=== PATIENT | female | born 1965 | race Caucasian/White ===

== ENCOUNTER → 2016-11-24 | Outpatient (CLI) | payer OTHER ==
[2016-11-24 18:47] LABS: FREE T4 1.28 NG/DL (0.76-1.46)
== END ==
LOC: M WUC 14:36
PROVIDERS: ATTEND Physician Assistant Medical
DX: E89.0 Postprocedural hypothyroidism (principal); L65.9 Nonscarring hair loss, unspecified

== ENCOUNTER → 2017-02-21 | Outpatient (CLI) | payer OTHER ==
[2017-02-21 19:10] LABS: FREE T4 0.93 NG/DL (0.76-1.46)
== END ==
LOC: M WUC 10:48
PROVIDERS: ATTEND Physician Assistant Medical
DX: E89.0 Postprocedural hypothyroidism (principal)

== ENCOUNTER → 2017-06-21 | Outpatient (CLI) | payer OTHER ==
[2017-06-21 14:04] LABS: ANION GAP 7 MEQ/L (8-16); BLOOD UREA NITROGEN 15 MG/DL (7-18); CALCIUM LEVEL 8.9 MG/DL (8.5-10.1); CARBON DIOXIDE LEVEL 27 MEQ/L (21-32); CHLORIDE LEVEL 103 MEQ/L (98-107); CREATININE FOR GFR 0.77 MG/DL (0.55-1.02); FREE T4 1.39 NG/DL (0.76-1.46); GLOMERULAR FILTRATION RATE > 60.0 (>58); GLUCOSE, FASTING 104 MG/DL (70-105); SODIUM LEVEL 137 MEQ/L (136-145)
[2017-06-21 14:07] LABS: POTASSIUM SERUM 5.4 MEQ/L (3.5-5.1)
== END ==
LOC: M WUC 09:43
PROVIDERS: ATTEND Internal Medicine Endocrinology, Diabetes & Metabolism
DX: E89.0 Postprocedural hypothyroidism (principal)

== ENCOUNTER → 2017-08-15 | Outpatient (CLI) | payer OTHER ==
[2017-08-15 13:20] LABS: FREE T4 1.2 NG/DL (0.76-1.46)
== END ==
LOC: M WUC 09:49
PROVIDERS: ATTEND Nurse Practitioner Family
DX: E89.0 Postprocedural hypothyroidism (principal)

== ENCOUNTER → 2017-10-16 | Outpatient (CLI) | payer OTHER ==
[2017-10-16 16:21] LABS: FREE T4 1.32 NG/DL (0.76-1.46)
== END ==
LOC: M WUC 12:25
PROVIDERS: ATTEND Nurse Practitioner Family
DX: E89.0 Postprocedural hypothyroidism (principal)

== ENCOUNTER → 2018-03-27 | Outpatient (CLI) | payer OTHER ==
[2018-03-27 11:17] LABS: THYROID STIMULATING HORMONE 0.117 uIU/ML (0.358-3.740)
== END ==
LOC: M WUC 09:24
DX: E89.0 Postprocedural hypothyroidism (principal)
CPT/HCPCS: 84443

== ENCOUNTER → 2018-08-28 | Outpatient (REF) | payer OTHER ==
[2018-08-28 12:56] LABS: FREE T4 1.14 NG/DL (0.76-1.46)
== END ==
LOC: M LABDRAW1 11:53
DX: E89.0 Postprocedural hypothyroidism (principal)
CPT/HCPCS: 84443

== ENCOUNTER → 2018-12-26 | Outpatient (REF) | payer OTHER ==
[2018-12-26 13:12] LABS: FREE T4 1.16 NG/DL (0.76-1.46); THYROID STIMULATING HORMONE 1.1 uIU/ML (0.358-3.740)
== END ==
LOC: M LABDRAW1 12:01
PROVIDERS: ATTEND Nurse Practitioner Family
DX: E89.0 Postprocedural hypothyroidism (principal)

== ENCOUNTER → 2019-06-17 | Outpatient (CLI) | payer OTHER ==
[2019-06-17 14:21] LABS: FREE T4 1.26 NG/DL (0.76-1.46); THYROID STIMULATING HORMONE 1.29 uIU/ML (0.358-3.740)
== END ==
LOC: M WUC 10:52
PROVIDERS: ATTEND Nurse Practitioner Family
DX: E89.0 Postprocedural hypothyroidism (principal)

== ENCOUNTER → 2020-05-07 | Outpatient (CLI) | payer OTHER ==
--- NOTE | 2020-05-07 13:54 | REP ---
RIGHT ANKLE SERIES: FOUR VIEWS. HISTORY: Right ankle swelling. Medial pain. FINDINGS: Four views of the right ankle demonstrate an intact ankle mortise. There is mild medial and lateral soft tissue swelling. Achilles tendon contour appears normal. No fracture or subluxation is seen. Joint spaces preserved. IMPRESSION: Mild diffuse swelling. Otherwise negative. No fracture or subluxation seen. Electronically Signed by Pavan Pratt MD 05/07/2020 02:40 P
== END ==
LOC: M LRY 10:44
PROVIDERS: ATTEND Physician Assistant
DX: M25.471 Effusion, right ankle (principal)